=== PATIENT | male | born 1995 | race Caucasian/White ===

== ENCOUNTER 2019-03-14 17:47 | Emergency (ER) | payer OTHER ==
[~2019-03-14] VITALS: Ht 175.3 cm; Wt 77.3 kg
[2019-03-14 20:54] VITALS: BP 140/87
[2019-03-14] MEDS ORDERED: ibuprofen tablet 400 MG TABLET PO ONE (21:05)
== END 2019-03-14 21:11 | disposition home or self-care (01) ==
LOC: ER 17:49
DX: S69.82XA Other specified injuries of left wrist, hand and finger(s), initial encounter (principal); R10.9 Unspecified abdominal pain; V89.2XXA Person injured in unspecified motor-vehicle accident, traffic, initial encounter; Y93.89 Activity, other specified; Y92.488 Other paved roadways as the place of occurrence of the external cause; Y99.8 Other external cause status
CPT/HCPCS: 73130; 99283

== ENCOUNTER 2021-06-22 14:31 | Emergency (ER) | payer SELFPAY ==
[~2021-06-22] VITALS: Ht 175.3 cm; Wt 79.7 kg
[2021-06-22 14:57] VITALS: BP 150/85
[2021-06-22] MEDS ORDERED: LORA-269 PO (15:52)
== END 2021-06-22 15:59 | disposition home or self-care (01) ==
LOC: ER 14:31
DX: F41.9 Anxiety disorder, unspecified (principal); R07.89 Other chest pain; F17.200 Nicotine dependence, unspecified, uncomplicated; Z79.899 Other long term (current) drug therapy
CPT/HCPCS: 93005; 99283

== ENCOUNTER 2021-07-05 10:46 | Emergency (ER) | payer MEDICAID ==
[~2021-07-05] VITALS: Ht 175.3 cm; Wt 77.3 kg
[~2021-07-05 10:46] MED LIST: LORA-269 PO
[2021-07-05 11:18] VITALS: BP 144/83
== END 2021-07-05 12:21 | disposition home or self-care (01) ==
LOC: ER 10:47
DX: F41.0 Panic disorder [episodic paroxysmal anxiety] (principal); F41.9 Anxiety disorder, unspecified; Z79.899 Other long term (current) drug therapy
CPT/HCPCS: 93005; 99283